=== PATIENT | male | born 1995 | race Caucasian/White ===

== ENCOUNTER 2016-06-25 16:36 | Emergency (ER) | payer OTHER ==
--- NOTE | 2016-06-25 17:33 | CT ---
Name: LISA MCKEON Exam: CT of the cervical spine without contrast Comparison: None. Clinical history: Pain. Trauma Procedure: Helical CT using multidetector technique was applied to the cervical spine. No contrast was given. Sagittal, axial and coronal images are submitted. And automated dose reduction technique was used to minimize patient radiation dose. Findings: Bone density is normal. Vertebral body alignment is within normal limits. There is no fracture or suspicious disc space narrowing. The odontoid is intact. An acute disc is not appreciated on this exam. Perivertebral soft tissues are within normal limits. Impression: Negative CT of the cervical spine Note: The above report was uploaded to [facility]'s electronic medical records system at 1728 hours.
[2016-06-25] MEDS ORDERED: IBUPROFEN 600 MG TABLET ONE (17:35)
--- NOTE | 2016-06-25 17:43 | RAD ---
Name: LISA MCKEON Exam: Right shoulder Comparison: None Clinical history: Trauma. Right shoulder pain. Initial encounter. Findings: 3 views of the right shoulder are submitted. Bone density is within normal limits. AC joint, coracoclavicular joint and glenohumeral joints are normal. Subacromial space is maintained. There is no fracture, dislocation or suspicious soft tissue calcification. Visualized portion of the right lung is clear. Impression: Negative right shoulder
--- NOTE | 2016-06-25 17:44 | RAD ---
Name: LISA MCKEON Exam: Right knee Comparison: None Clinical history: Trauma. Right knee pain. Initial encounter. Findings: 4 views right knee are submitted. Bone density is normal. Joint spaces are maintained. Bony alignment is normal. There is no fracture, dislocation, periosteal reaction, foreign body or joint effusion. Impression: Negative right knee
--- NOTE | 2016-06-25 17:47 | RAD ---
Name: LISA MCKEON Exam: Two-view chest Comparison: None Clinical history: Trauma. Chest pain. Initial encounter. Findings Findings: 2 views of the chest are submitted. The heart mediastinum and hilar structures are within normal limits. There is no failure, infiltrate, pleural effusion or pneumothorax. Regional skeleton is within normal limits. Impression: No acute cardiopulmonary process
[2016-06-25] MEDS ORDERED: METHOCARBAMOL 500 MG TABLET PO ONE (18:00)
== END 2016-06-25 18:26 | disposition home or self-care (01) ==
LOC: ED 16:36
DX: M25.511 Pain in right shoulder (principal); M25.561 Pain in right knee; M54.2 Cervicalgia; V43.62XA Car passenger injured in collision with other type car in traffic accident, initial encounter; Y92.410 Unspecified street and highway as the place of occurrence of the external cause
CPT/HCPCS: 71020; 73564; 73030; 72125; 99283 ×2; A9270